=== PATIENT | female | born 1995 | race Caucasian/White ===

== ENCOUNTER 2018-08-22 02:11 | Emergency (ER) | payer OTHER ==
--- NOTE | 2018-08-22 03:22 | EDM.PDOC ---
ED HPI GENERAL MEDICAL PROBLEM - General Chief Complaint: Lower Extremity Injury/Pain Stated Complaint: LT LEG INJURY Time Seen by Provider: 08/22/18 03:00 Source of Information: Reports: Patient - History of Present Illness INITIAL COMMENTS - FREE TEXT/NARRATIVE: pt stumbled at work without falling, felt a pop at left knee , this was about an hr ago, pt is able to ambulate but with a slight limb, she denies any other injuries or concerns. report hx of meniscus injury 4 years ago in the same knee. 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: G0 Musculoskeletal History: Reports: Fracture Other Musculoskeletal History: Hx fx R index finger, bilat wrist Endocrine/Metabolic History: Reports: Obesity/BMI 30+ - Past Surgical History HEENT Surgical History: Reports: Oral Surgery GI Surgical History: Reports: None Musculoskeletal Surgical History: Reports: Arthroscopic Knee Other Musculoskeletal Surgeries/Procedures:: L knee scope & repair ACL & meniscus Social & Family History - Family History Family Medical History: Noncontributory - Tobacco Use Smoking Status *Q: Current Every Day Smoker Years of Tobacco use: 4 Packs/Tins Daily: 0.5 - Caffeine Use Caffeine Use: Reports: Coffee, Soda - Recreational Drug Use Recreational Drug Use: No Review of Systems - Review of Systems Review Of Systems: See Below Constitutional: Reports: No Symptoms Respiratory: Reports: No Symptoms Cardiovascular: Reports: No Symptoms ED EXAM, GENERAL - Physical Exam Exam: See Below Exam Limited By: No Limitations General Appearance: Alert, Mild Distress Head: Atraumatic, Normocephalic Neck: Normal Inspection, Supple, Non-Tender Respiratory/Chest: No Respiratory Distress, Lungs Clear Cardiovascular: Regular Rate, Rhythm, No Murmur GI/Abdominal: Normal Bowel Sounds, Soft, Non-Tender Extremities: Other (tender over the anterior and medial part of left knee, no deformities or joint instabiltity.pt is ambulatory. ) Course - Vital Signs Text/Narrative:: xray shows no acute findings. pt is ambulatory here witha slight limp, exam shows no joint instability . pt likely has knee strain, and supportive mng was recooemded. she is to be off work for 2 days and follow with PCP. Last Recorded V/S: Last Vital Signs Temp 36.6 C 08/22/18 02:14 Pulse 78 08/22/18 02:14 Resp 18 08/22/18 02:14 BP 139/77 08/22/18 02:14 Pulse Ox 100 08/22/18 02:14 - Orders/Labs/Meds Orders: Active Orders 24 hr Category Date Time Status Knee 3V Lt [CR] Stat Exams 08/22/18 02:33 Taken Departure - Departure Time of Disposition: 03:25 Disposition: Home, Self-Care 01 Clinical Impression: Knee strain - Discharge Information Referrals: PCP,None [Primary Care Provider] - - My Orders Last 24 Hours: My Active Orders 08/22/18 02:33 Knee 3V Lt [CR] Stat - Assessment/Plan Last 24 Hours: My Active Orders 08/22/18 02:33 Knee 3V Lt [CR] Stat
--- NOTE | 2018-08-22 09:24 | CR ---
INDICATION: Pain, twisted left knee. LEFT KNEE: Four images of the left knee in three projections were obtained, - no comparisons. Postsurgical distal femur is noted with a pin in place. An acute fracture or dislocation was not identified. Overall bone density appeared normal. Lateral views were less than ideal. IMPRESSION: No acute fracture or dislocation identified. MTDD
== END 2018-08-22 03:36 | disposition home or self-care (01) ==
LOC: FB.ED 02:11
DX: S86.912A Strain of unspecified muscle(s) and tendon(s) at lower leg level, left leg, initial encounter (principal); F17.210 Nicotine dependence, cigarettes, uncomplicated; X58.XXXA Exposure to other specified factors, initial encounter; Y99.0 Civilian activity done for income or pay
CPT/HCPCS: 73562-LT; 99000; 99283-25